=== PATIENT | male | born 1965 | race Hispanic/Latino ===

== ENCOUNTER 2023-08-21 03:03 | Emergency (ER) | payer OTHER ==
[2023-08-21] MEDS ORDERED: HYDROcodone/Acetaminophen 5/325 mg Tablet ONE (03:45)
[2023-08-21] MEDS ORDERED: Amoxicillin/Potassium Clav 875 MG TAB ONE (03:46)
== END 2023-08-21 04:00 | disposition home or self-care (01) ==
LOC: MADERS 03:03
DX: H66.92 Otitis media, unspecified, left ear (principal); I10 Essential (primary) hypertension; Z79.899 Other long term (current) drug therapy
CPT/HCPCS: 99282